=== PATIENT | male | born 1950 | race African-American/Black ===

== ENCOUNTER 2017-03-11 13:05 | Emergency (ER) | payer MEDICARE ==
[2015-02-26 10:57] VITALS: BMI 24.9
[~2017-03-11 13:05] MED LIST: ACETAMINOPHEN325 MG PO; BAYER CHEWABLE81 MG PEG; DEPAKENE 2250 MG/5 M PEG; DEPAKOTE SPRIN125 MG PO; DEPO-PROVER150 MG/ML IM; HYDROCHLOROTH12.5 M1 PEG; HYDROCODON-ACE1 EAC7 PO; LASIX20 MG PO; LIPITOR20 MG PEG; MOBIC7.5 MG PO; PRINIVIL20 MG PEG; TOPROL XL25 MG PO; VIC-FORTE CAPSUL1 MG PEG; VITAMIN D31000 UNI2 PEG; VOLTAREN100 GM TOPICAL
[2017-03-14 10:51] VITALS: BMI 28.3
== END 2017-03-11 15:38 | disposition home or self-care (01) ==
LOC: D.ER 13:05
DX: Z43.1 Encounter for attention to gastrostomy (principal)

== ENCOUNTER 2017-03-12 14:21 | Emergency (ER) | payer MEDICARE, MEDICAID ==
[2015-02-26 10:57] VITALS: BMI 24.9
[2017-03-14 10:51] VITALS: BMI 28.3
== END 2017-03-12 19:50 | disposition home or self-care (01) ==
LOC: D.ER 14:21
DX: Z43.1 Encounter for attention to gastrostomy (principal)

== ENCOUNTER 2017-03-13 12:17 | Inpatient (IN) | payer MEDICARE ==
[~2017-03-13] VITALS: Ht 162.6 cm; Wt 74.8 kg
[2017-03-13 12:03] VITALS: BP 148/71
--- NOTE | 2017-03-13 13:03 | NUR ---
NEW ADMIT FROM PA. CALL LIGHT IN REACH. WILL CONT. PLAN OF CARE.
[2017-03-13 13:26] VITALS: BP 148/71; BMI 28.4
[2017-03-13 14:18] LABS: BASOPHILS 0.9 % (0-2); EOSINOPHILS 2.6 % (0-7); HEMATOCRIT 35.4 % (42.0-54.0); HEMOGLOBIN 10.6 g/dL (13.5-17.5); IMMATURE GRANULOCYTES 0.2 % (0-5); MCHC 29.9 g/dL (31.0-37.0); MCV 93.4 fL (80.0-100.0); MEAN PLATELET VOLUME 11.7 fL (7.4-10.4); MONOCYTES 7.4 % (2-11); NEUTROPHILS 70.9 % (40-80); RBC 3.79 10x6/uL (4.20-6.10); RDW 15.8 % (11.5-14.5); WBC 10.6 10x3/uL (4.8-10.8)
--- NOTE | 2017-03-13 14:19 | NUR ---
WOUND CARE CONSULT: PATIENT ADMITTED FROM DETENTION. CALMOSEPTINE SEEN IN GROIN AREA, CLEANED OFF, NO SKIN ISSURES SEEN. COCCYX AND SACRUM ARE FREE FROM SKIN ISSURES. BOTTOM OF FEET ARE DRY AND SCALY. UNSURE IS PATIENT IS ABLE TO WALK HE CAN NOT BEND HIS ANKLES WHEN ASKED TO. RECOMMEND TO TURN EVERY TWO HOURS, BRIDGE HEELS TO HELP PREVENT SKIN ISSUES. SKIN CARE WILL MONITOR NEEDED.
[2017-03-13 14:21] LABS: PLATELET COUNT 528 10x3/uL (130-400)
[2017-03-13 14:33] LABS: ALBUMIN 2.9 g/dL (3.4-5.0); ANION GAP 16.9 mmol/L (8-16); BILIRUBIN - TOTAL 0.18 mg/dL (0.2-1.3); CALCIUM 9.8 mg/dL (8.5-10.1); CARBON DIOXIDE 24.8 mmol/L (21.0-32.0); CREATININE - SERUM 1.8 mg/dL (0.6-1.3); POTASSIUM - SERUM 4.7 mmol/L (3.5-5.1); PROTEIN - SERUM 7.4 g/dL (6.4-8.2)
[2017-03-13 15:58] VITALS: BP 157/52
--- NOTE | 2017-03-13 19:32 | NUR ---
PT RESTING IN BED. DENIES ANY NEEDS. RESPIRATIONS EVEN AND UNLABORED. NO S/S OF DISTRESS. WILL CONTINUE TO MONITOR
--- NOTE | 2017-03-13 20:30 | NUR ---
PT IN BED. C/O BEING WET PADS CHANGED AND PT CLEANED UP. PT ALSO C/O WANTING WATER. NO DIET IS IN AT THIS TIME. SWABS ARE PROVIEDED UNTIL FURTHER NOITCE. PT DENIES ANY OTHER NEEDS, NO S/S OF DISTRESS. WILL CONTINUE TO MONITOR
[2017-03-13 21:50] VITALS: BP 142/67
[2017-03-14 01:18] VITALS: BP 134/67
[2017-03-14 05:35] VITALS: BP 168/63
[2017-03-14 06:04] LABS: HEMATOCRIT 31.8 % (42.0-54.0); HEMOGLOBIN 9.5 g/dL (13.5-17.5)
--- NOTE | 2017-03-14 06:53 | NUR ---
PT IN BED IRRITABLE. ASKS FOR WATER. NO DIET IS PUT IN AND BECAUSE OF THE ADM. DX OF EMESIS LOOKS LIKE COFFEE GROUNDS. SWABS GIVEN SERVAL TIMES. PT DENIES ANY THIS TIME. PT STARTING TO GET RESTLESS. CAN HEAR A GARGLE WHEN BREATHING AT TIMES. NOT CLEARED WITH A COUGH. NO S/S OF DISTRESS. RESPIRATIONS ARE EVEN AND UNLABORED. WILL CONTINUE TO MONITOR PT
[2017-03-14 08:00] VITALS: BP 143/65
--- NOTE | 2017-03-14 08:15 | NUR ---
INTRODUCED MYSELF TO PT. PT VERY EAGER TO DRINK WATER, UNSURE IF PT IS CAPABLE OF THIS. SPEECH CONSULT IN PROGRESS, PROVIDED ORAL CARE AND WILL AWAIT SPEECH TO ASSESS. DIETARY CONSULTED FOR G-TUBE ORDERS, GI GAVE OKAY TO USE TOLERATED G-TUBE IS IN PLACE BUT OPENING IS WIDENED. WILL PROVIDE DRSG AND WOUND CARE SHORTLY AND CPOC.
[2017-03-14 10:51] VITALS: Ht 162.6 cm; Wt 74.8 kg
--- NOTE | 2017-03-14 11:00 | NUR ---
CHANGED PTS G-TUBE DRSG. CLEANSED WITH ASEPTIC FOAM CLEANSER, PATTED DRY AND THEN APPLIED KATE DRAIN DRG AND TAPED DOWN. SITE HAD BROWNISH YELLOW DRAINAGE WITH SOME DRIED UP BLOOD. PROVIDED PT WITH ORAL CARE. APPLIED SCDS FOR DVT PROPHYLACTIC AND APPLIED SOCKS PT REQUESTED. NO FURTHER NEEDS NOTED AT THIS TIME. CL IN REACH, BED IN LOWEST, SIDE RAILS X2 AND BUILT IN BED ALARM ON. WILL CPOC.
--- NOTE | 2017-03-14 11:05 | NUR ---
Nutrition Consult: Consult received to start TF. Orders put in to start Osmolite 1.5 @ 10 ml/hr. Advance 10 ml every 6-8 hours as tolerated to goal rate of 50 ml/hr. Water flushes 25 ml/hr. RD will monitor pt progress and tolerance to TF.
--- NOTE | 2017-03-14 11:30 | NUR ---
ORDERS REC'D FOR TUBE FEEDING. NO KANGEROO PUMP AVAILABLE AT THIS TIME. CALLED [facility] AND SPOKE TO OSMANI WHO STATES SHE WILL SEND ONE OVER. WILL CPOC.
[2017-03-14 12:00] VITALS: BP 171/71
[2017-03-14] MEDS ORDERED: HEMOCYTE PLUS C1 CAP PO (14:36)
--- NOTE | 2017-03-14 14:37 | NUR ---
PT NOW BEING DISCHARGE. TUBE FEEDINGS WILL NOT BE STARTED, BEGINNING DISCHARGE PAPERWORK. SISTER AT BEDSIDE AND VERBALIZED UNDERSTANDING. NO FURTHER NEEDS. WILL CTM.
--- NOTE | 2017-03-14 15:34 | NUR ---
Patient Name: LG JACOBS Admission Status: Urgent Accout number: [id number] Admission Date: 03-13-2017 : 1950 Admission Diagnosis: Attending: CANDY Current LOS: 1 Anticipated DC Date: 03-14-2017 Planned Disposition: Nursing Facility MALIK Cert Primary Insurance: MEDICARE A & B PLANNED EXTERNAL PROVIDER: [facility], [facility] MEDICAID BED Discharge Planning Comments: * Is the patient Alert and Oriented? Yes 0 * How many steps to enter\exit or inside your home? NONE 0 * PCP [facility] 0 * Pharmacy [facility] 0 * Preadmission Environment [facility] 0 * Facility Name [facility] 0 * ADLs Total Dependent 0 * Equipment Enteral Feeding and Supplies Wheelchair 0 * Other Equipment ALL EQUIPMENT AND NEEDS PROVIDED BY NURSING FACILITY 0 * List name and contact numbers for known caregivers / representatives who currently or will assist patient after discharge: ALICE DARNELL, SISTER, 0 * Community resources currently utilized None 0 * Please name any agencies selected above. NONE 0 * Additional services required to return to the preadmission environment? No 0 * Can the patient safely return to the preadmission environment? Yes 0 * Has this patient been hospitalized within the prior 30 days at any hospital? Yes 0 CM RECEIVED DISCHARGE ORDER, MET WITH PT AND HIS SISTER, ALICE IN ROOM. PT CAN SPEAK BUT IS VERY DIFFICULT TO UNDERSTAND. PT REPORTS LIVING AT THE [facility], SISTER REPORTS PT LIVES AT [facility] AND HAS BEEN THERE FOR YEARS. PT'S FAMILY MEMBERS WORK AT THE FACILITY AND SISTER REPORTS PT'S NEEDS ARE MET AND PT IS SAFE THERE. PT WILL RETURN THERE TODAY. [place] CONTACTED [facility], CLINCAL COORDINATOR FOR [facility], , PT CAN RETURN TODAY, HAND SCUDDER ADVISED THAT PT HAS NOT BEEN OUT OF BED IN MONTHS. CM FAXED DISCHARGE INFORMATION TO [facility] VIA [facility] AT [phone]. NURSE REPORT TO BE CALLED TO [facility] AT [phone]. PT TO TRANSPORT VIA AMBULANCE IF HE QUALIFIES. IF PT IS ABLE TO SIT SAFELY FOR DURATION OF TRANSPORT NOTIFY [facility] WHO WILL ARRANGE VAN TRANSPORT. Car Sweeper: Nick Mcgill
[2017-03-14 15:51] VITALS: BP 173/71
--- NOTE | 2017-03-14 18:09 | NUR ---
CALLED [facility] FOR AMBULANCE TRANSFER BACK TO [facility]. [facility] ESTIMATED AROUND A ONE HOUR WAIT. PT UNABLE TO SIGN DISCHARGE PAPERS R/T OLD STROKE LEAVING L.ARM VERY LIMITED AND RIGHT ARM PT JUST STATES "CANT SIGN" REPORT GIVEN TO [facility] NURSE AND NO FURTHER QUESTIONS. WILL AWAIT TRANSPORTATION.
--- NOTE | 2017-03-14 20:24 | NUR ---
EMS TO GYM TEACHER PT. PT CLEANED INCONT BM. PT LEFT MIDLINE REMOVED AND PRESSURE DRESSING APPLIED. SISTER CALLED AT [phone] LIKE REQUESTED. PT LEAVE WITH EMS TO COURT YARD
== END 2017-03-14 20:22 | DRG 395 ==
LOC: D.M2 12:17
PROVIDERS: Family Medicine; ADMIT Family Medicine
PROC: 05HC33Z Insertion of Infusion Device into Left Basilic Vein, Percutaneous Approach (ICD-10-PCS; principal; 2017-03-13)
PROC: B54NZZA Ultrasonography of Left Upper Extremity Veins, Guidance (ICD-10-PCS; 2017-03-13)
DX: K94.23 Gastrostomy malfunction (principal); I69.919 Unspecified symptoms and signs involving cognitive functions following unspecified cerebrovascular disease; F01.50 Vascular dementia, unspecified severity, without behavioral disturbance, psychotic disturbance, mood disturbance, and anxiety; I10 Essential (primary) hypertension; Z72.0 Tobacco use; F32.9 Major depressive disorder, single episode, unspecified; E55.9 Vitamin D deficiency, unspecified; D64.9 Anemia, unspecified

== ENCOUNTER 2017-04-02 10:10 | Emergency (ER) | payer MEDICARE ==
[2017-03-14 10:51] VITALS: BMI 28.3
[~2017-04-02 10:10] MED LIST changes: +HEMOCYTE PLUS C1 CAP PO
== END 2017-04-02 12:45 | disposition home or self-care (01) ==
LOC: D.ER 10:10
DX: K94.20 Gastrostomy complication, unspecified (principal); R13.10 Dysphagia, unspecified; R09.89 Other specified symptoms and signs involving the circulatory and respiratory systems; R53.1 Weakness

== ENCOUNTER → 2017-04-05 08:53 | Outpatient (CLI) | payer MEDICARE ==
[2017-03-14 10:51] VITALS: BMI 28.3
--- NOTE | ~2017-04-05 | HEMODYNAMI ---
PATIENT:LG JACOBS MEDICAL RECORD: [id number] : 46 LOCATION:[facility] ADMISSION DATE: 04/05/17 Generatedon:04/05/201710:03 Patient name: LG JACOBS Patient #: [id number] SSN: : 1950 Date of study: 04/05/2017 Page: Of Hemodynamic Procedure Report Patient Data Patient Demographics Procedure consent was obtained First Name: LG Gender: Male Last Name: ARLENE : 1950 [facility] Initial: J Age: 66 year(s) Patient #: [id number] Race: Black Additional ID: [id number] Contact details Address: [address] [place] [address] DRIVE State: [place] City: [place] Zip code: [address] Admission Admission Data Admission Date: 04/05/2017 Admission Time: 8:53 Procedure Procedure Types Cath Procedure Peripheral Cath Diagnostic Procedure Miscellaneous Procedure Description Procedure Date Procedure Date: 04/05/2017 Procedure Start Time: 9:53 Procedure Staff Name Function Martha Hauser MD Ordering physician Martha Hauser MD Interpreting employee operations examiner Suleiman Williamson MD Performing Physician Srinivasa Ramirez RT Scrub Srinivasa Ramirez RT Monitor Aisha Bruno RN Nurse Procedure Data Cath Procedure Fluoroscopy Diagnostic fluoroscopy Total fluoroscopy Time: 0.5 time: 0.5 min min Diagnostic fluoroscopy Total fluoroscopy dose: 5 dose: 5 mGy mGy Contrast Material Contrast Material Type Amount (ml) Isovue 300 16 Hemodynamics Rest Pre Cath Intra NCS Post Cath Procedure Log Time Note 9:35:28 Srinivasa Ramirez RT (R) (CV) sent for patient. Start room use. 9:35:44 Patient received from Outpatients to IR Alert and oriented. Tansferred to table in Supine position. 9:35:48 Signed procedure consent form obtained from guardian. 9:35:49 Pre-procedure instructions explained to patient. 9:35:52 Use device set IR Diagnostic 9:35:53 Sterile Angiographic Pack opened to sterile field. 9:35:54 Bag Decanter opened to sterile field. 9:36:08 Unable to provide pre-op teaching due to educational barrier. stroke 9:36:14 Left abdomen area was prepped with chlora-prep and draped in sterile fashion 9:52:17 --------ALL STOP TIME OUT------ 9:52:18 Final Timeout: patient, procedure, and site verified with staff and physician. All members of the team are in agreement. 9:52:25 Sedation plan: Local Anesthetic Lidocaine 9:53:12 Procedure started. 9:53:12 Full Disclosure recording started 9:53:22 Local anesthetic to Abdominal area with Lidocaine 1% by Suleiman Williamson MD.INITIAL ACCESS ONLY 9:53:[address] .035 145 glide wire opened to sterile field. 9:53:25 TUBE GASTROSTOMY TRI FUNNEL 18FR opened to sterile field. 10:02:14 Procedure ended.(Physican Out) 10:02:40 Fluoroscopy time 00.50 minutes. 10:02:43 Fluoroscopy dose: 5 mGy 10:02:43 Flurop Dose total: 5 10:02:52 Contrast amount:Isovue 300 16ml. 10:02:54 Sharps counted by scrub and verified by R.N. 10:02:56 Insertion/operative site no bleeding no hematoma. 10:03:03 Post Abdominal area:stable 10:03:10 Patient needs reinforcement of post procedure teaching. 10:03:14 Procedure and supply charges have been captured, reviewed, submitted and are correct. 10:03:17 Report given to Other. 10:03:21 Patient transfered to Other with Wheelchair. Device Usage Item Name Manufacture Quantity Catalog Hospital Part Current Minimal Lot# / Number Charge Number Stock Stock Serial# Code Sterile Cardinal 1 [id number] 5 Angiographic Health Pack Bag Decanter Microtek [id number] [id number] 5 [employer] VidaPak Medical 1 [id number] [id number] .035 145 glide wire TUBE [place] 1 [id number] 109496 5 GASTROSTOMY TRI FUNNEL 18FR Signature Audit [place] Stage Time Signature Unsigned Intra-Procedure 04/05/2017 Srinivasa 10:03:34 AM [place] RT (R) (CV) Signatures Monitor : Srinivasa Signature : James RT Date : Time : [place] [id number] [place] [address]
== END | disposition home or self-care (01) ==
LOC: D.OPS 08:53 → D.RAD 13:00 → D.OPS 13:00
DX: R13.10 Dysphagia, unspecified (principal)

== ENCOUNTER 2017-04-28 14:06 | Emergency (ER) | payer MEDICARE ==
[2017-03-14 10:51] VITALS: BMI 28.3
== END 2017-04-28 16:05 | disposition home or self-care (01) ==
LOC: D.ER 14:06
DX: K94.29 Other complications of gastrostomy (principal)

== ENCOUNTER → 2017-07-13 08:22 | Outpatient (CLI) | payer MEDICARE ==
[2017-03-14 10:51] VITALS: BMI 28.3
--- NOTE | ~2017-07-13 | HEMODYNAMI ---
PATIENT:LG JACOBS MEDICAL RECORD: [id number] : 46 LOCATION:[facility] ADMISSION DATE: 07/13/17 Generatedon:07/13/201710:48 Patient name: LG JACOBS Patient #: [id number] SSN: : 1950 Date of study: 07/13/2017 Page: Of Hemodynamic Procedure Report Patient Data Patient Demographics Procedure consent was obtained First Name: LG Gender: Male Last Name: ARLENE : 1950 [facility] Initial: J Age: 67 year(s) Patient #: [id number] Race: Black Additional ID: [id number] Contact details Address: [address] [place] [address] DRIVE State: [place] City: [place] Zip code: [address] Admission Admission Data Admission Date: 07/13/2017 Admission Time: 8:22 Procedure Procedure Types Cath Procedure Peripheral Cath Diagnostic Procedure Cath Peripheral Gastric G Tube Replacement Procedure Description Procedure Date Procedure Date: 07/13/2017 Procedure Start Time: 10:41 Procedure Staff Name Function Felice Paul MD Performing Physician Arlette Shane RT Monitor Srinivasa Ramirez RT Scrub Cassandra Clark RN Nurse Arlette Shane RT Dye Expert Procedure Data Cath Procedure Fluoroscopy Diagnostic fluoroscopy Total fluoroscopy Time: 0.8 time: 0.8 min min Diagnostic fluoroscopy Total fluoroscopy dose: 22 dose: 22 mGy mGy Contrast Material Contrast Material Type Amount (ml) Isovue 300 15 Procedure Medications Medication Administration Route Dosage Lidocaine 1% added to field 20 Heparin Flush Bag added to field 1 bags (1000units/500ml NS) Hemodynamics Rest Pre Cath Intra NCS Post Cath Medications Time Medication Route Dose Verified Delivered Reason Notes Effe ctiveness by by 10:32:22 Lidocaine 1% added 20ml Cassandra Viveros for local to vial Eduardo Paul anesthetic field ADOLFO PEREZ 10:32:42 Heparin Flush added 1 Cassandra Viveros Bag to bags Eduardo Paul (1000units/500ml field RN NS) Procedure Log Time Note 9:49:38 Time tracking: Regular hours 9:50:06 Plan of Care:Comfort level will be maintained., Procedure tolerated without complication., Recovers from procedure without complications.. 9:50:20 Patient received from Other to IR Alert and oriented. Tansferred to table in Supine position. 9:50:23 Correct patient and procedure confirmed by team. 9:50:26 Signed procedure consent form obtained from guardian. 9:50:29 - 9:51:14 Patient NPO since Midnight. 9:53:27 Is the patient allergic to Iodine/contrast media? No. 9:53:37 - 9:53:46 Use device set IR Diagnostic 9:53:47 Sterile Angiographic Pack opened to sterile field. 9:53:49 Bag Decanter opened to sterile field. 10:24:52 TUBE GASTROSTOMY TRI FUNNEL 18FR opened to sterile field. 10:32:22 Lidocaine 1% 20ml vial added to field was administered by Feliec petersen MD; for local anesthetic; 10:32:42 Heparin Flush Bag (1000units/500ml NS) 1 bags added to field was administered by Felice Paul MD; ; 10:34:31 Left abdomen area was prepped with chlora-prep and draped in sterile fashion 10:40:27 Physician arrived 10:41:00 --------ALL STOP TIME OUT------ 10:41:01 Final Timeout: patient, procedure, and site verified with staff and physician. All members of the team are in agreement. 10:41:38 Sedation plan: Local Anesthetic Medication:Lidocaine 10:41:52 Procedure started. 10::52 Full Disclosure recording started 10:42:20 Cook ELIZABETH .035 15CM guide wire opened to sterile field. 10:44:25 g tube replaced with a 18fr tri funnel g tube 10:46:55 Procedure ended.(Physican Out) 10:47:13 Fluoroscopy time 00.80 minutes. 10:47:19 Fluoroscopy dose: 22 mGy 10:47:19 Flurop Dose total: 22 10:47:23 Contrast amount:Isovue 300 15ml. 10:47:42 Procedure and supply charges have been captured, reviewed, submitted an d are correct. 10:47:49 Report given to Other. 10:47:56 Patient transfered to Other with Stretcher. Device Usage Item Name Manufacture Quantity Catalog Hospital Part Current Minimal Lot# / Number Charge Number Stock Stock Serial# Code Sterile Cardinal 1 [id number] 5 Angiographic Health Pack Bag Decanter Microtek 1 [id number] 57923 [id number] 5 Medical Inc. TUBE Bard 1 [id number] 242951 358054 5 GASTROSTOMY TRI FUNNEL 18FR Cook [facility] 1 [id number] [id number] 5 .035 15CM guide wire Signature Audit [place] Stage Time Signature Unsigned Intra-Procedure 07/13/2017 Arlette Shane 10:48:36 AM RT(R) Signatures Monitor : Arlette Shane RT Signature : Date : Time : [address] [address]
== END | disposition home or self-care (01) ==
LOC: D.RAD 08:22
DX: R41.82 Altered mental status, unspecified (principal); R13.10 Dysphagia, unspecified

== ENCOUNTER 2018-04-15 09:24 | Emergency (ER) | payer MEDICARE ==
[~2018-04-15] VITALS: Ht 162.6 cm; Wt 74.5 kg
[2018-04-15 09:27] VITALS: Ht 162.6 cm; Wt 74.5 kg
[2018-04-15 14:47] VITALS: BP 132/62
== END 2018-04-15 14:49 | disposition home or self-care (01) ==
LOC: D.ER 09:24
DX: K94.23 Gastrostomy malfunction (principal); F03.90 Unspecified dementia, unspecified severity, without behavioral disturbance, psychotic disturbance, mood disturbance, and anxiety; I10 Essential (primary) hypertension; K21.9 Gastro-esophageal reflux disease without esophagitis

== ENCOUNTER 2018-04-18 07:19 | Emergency (ER) | payer MEDICARE ==
[~2018-04-18] VITALS: Ht 162.6 cm; Wt 79.5 kg
--- NOTE | ~2018-04-18 | HEMODYNAMI ---
PATIENT:LG JACOBS MEDICAL RECORD: [id number] : 46 LOCATION:[facility] ADMISSION DATE: 04/18/18 Generatedon:04/18/20189:20 Patient name: LG JACOBS Patient #: [id number] SSN: : 1950 Date of study: 04/18/2018 Page: Of Hemodynamic Procedure Report Patient Data Patient Demographics Procedure consent was obtained First Name: LG Gender: Male Last Name: ARLENE : 1950 [facility] Initial: J Age: 68 year(s) Patient #: [id number] Race: Black Additional ID: [id number] Contact details Address: [address] [place] [address] DRIVE State: [place] City: [place] Zip code: [address] Past Medical History Allergies: No known allergies Admission Admission Data Admission Date: 04/18/2018 Admission Time: 7:19 Height (in.): 64 BSA: 1.85 (m2) Height (cm.): 162.56 BMI: 30.04 (kg/m2) Weight (lbs.): 175 Weight (kg.): 79.38 Procedure Procedure Types Cath Procedure Peripheral Cath Diagnostic Procedure Cath Peripheral Gastric G Tube Replacement Procedure Description Procedure Date Procedure Date: 04/18/2018 Procedure Start Time: 9:07 Procedure Staff Name Function Suleiman Williamson MD Performing Physician Arlette Shane RT Roll Former Cassandra Clark RN Nurse Srinivasa Ramirez RT Scrub Procedure Data Cath Procedure Fluoroscopy Diagnostic fluoroscopy Total fluoroscopy Time: 0.5 time: 0.5 min min Diagnostic fluoroscopy Total fluoroscopy dose: 12 dose: 12 mGy mGy Contrast Material Contrast Material Type Amount (ml) Isovue 300 25 Hemodynamics Rest BSA: 1.85 (m2) O2 Consumption: Estimated: 251.6 (ml/min) O2 Consumption indexed: Estimated:136 (ml/min/m) Pre Cath Intra NCS Post Cath Procedure Log Time Note 8:49:00 Patient Height : 64 inches 8:49:05 Patient Weight : 175 lbs 8:50:00 Use device set IR Diagnostic 8:55:02 Time tracking: Regular hours (M-F 7:00 - 5:00) 8:55:12 Patient received from ED to IR Alert and oriented. Tansferred to table in Supine position. 8:55:19 Signed procedure consent form obtained from verbally. 8:55:34 H&P Date Dictated: 04/18/2018 ER History on chart.. 8:55:36 Pre-procedure instructions explained to patient. 8:55:37 Pre-op teaching completed and patient verbalized understanding. 8:55:41 Family unavailable. 8:55:51 Patient allergic to No known allergies 8:55:58 Is the patient allergic to Iodine/contrast media? No. 8:56:04 8:56:11 Sterile Angiographic Pack opened to sterile field. 8:56:13 Bag Decanter () opened to sterile field. 9:06:55 Physician arrived 9:07:07 --------ALL STOP TIME OUT------ 9:07:08 Final Timeout: patient, procedure, and site verified with staff and physician. All members of the team are in agreement. 9:07:14 Procedure started. 9:07:14 Full Disclosure recording started 9:07:20 Local anesthetic to Abdominal area with Lidocaine 1% by Suleiman Williamson MD.INITIAL ACCESS ONLY 9:16:39 Procedure ended.(Physican Out) 9:16:45 Fluoroscopy time 00.50 minutes. 9:16:49 Fluoroscopy dose: 12 mGy 9:16:49 Flurop Dose total: 12 9:16:54 Contrast amount:Isovue 300 25ml. 9:16:57 Procedure and supply charges have been captured, reviewed, submitted and are correct. Device Usage Item Name Manufacture Quantity Catalog Hospital Part Current Minimal Lot# / Number Charge Number Stock Stock Serial# Code Sterile Cardinal 1 [id number] 5 Angiographic Health Pack Bag Decanter Microtek 1 [id number] 19999 [id number] 5 () [employer] Signature Audit [place] Stage Time Signature Unsigned Intra-Procedure 04/18/2018 Arlette Shane 9:20:22 AM RT(R) [place] [id number] [place] [address]
[2018-04-18 07:25] VITALS: Ht 162.6 cm; Wt 79.5 kg
[2018-04-18] MEDS ORDERED: PROVENTIL/2.5 MG/3 M INH (07:30)
[2018-04-18] MEDS ORDERED: NORVASC5 MG PO (07:30)
[2018-04-18 10:06] VITALS: BP 139/62
== END 2018-04-18 10:43 | disposition home or self-care (01) ==
LOC: D.ER 07:19
DX: K94.23 Gastrostomy malfunction (principal); Z86.73 Personal history of transient ischemic attack (TIA), and cerebral infarction without residual deficits; K21.9 Gastro-esophageal reflux disease without esophagitis

== ENCOUNTER 2018-06-15 18:06 | Emergency (ER) | payer MEDICARE ==
[~2018-06-15] VITALS: Ht 162.6 cm; Wt 75.0 kg
[~2018-06-15 18:06] MED LIST changes: +NORVASC5 MG PO; +PROVENTIL/2.5 MG/3 M INH
[2018-06-15 18:21] VITALS: Ht 162.6 cm; Wt 75.0 kg
[2018-06-15 21:35] VITALS: BP 160/64
== END 2018-06-15 21:37 | disposition home or self-care (01) ==
LOC: D.ER 18:06
DX: K94.23 Gastrostomy malfunction (principal); Z86.73 Personal history of transient ischemic attack (TIA), and cerebral infarction without residual deficits; G71.00 Muscular dystrophy, unspecified; K21.9 Gastro-esophageal reflux disease without esophagitis

== ENCOUNTER → 2018-08-23 12:34 | Outpatient (CLI) | payer MEDICARE ==
[2018-06-15 18:21] VITALS: BMI 28.4
--- NOTE | ~2018-08-23 | HEMODYNAMI ---
PATIENT:LG JACOBS MEDICAL RECORD: [id number] : 46 LOCATION:[facility] ADMISSION DATE: 08/23/18 Generatedon:08/23/201814:29 Patient name: LG JACOBS Patient #: [id number] SSN: : 1950 Date of study: 08/23/2018 Page: Of Hemodynamic Procedure Report Patient Data Patient Demographics First Name: LG Gender: Male Last Name: ARLENE : 1950 [facility] Initial: J Age: 68 year(s) Patient #: [id number] Race: Black Additional ID: [id number] Contact details Address: [address] [place] [address] DRIVE State: [place] City: [place] Zip code: [address] Past Medical History Allergies: No known allergies Admission Admission Data Admission Date: 08/23/2018 Admission Time: 12:34 Procedure Procedure Types Cath Procedure Peripheral Cath Diagnostic Procedure Diesel Engine Operator Peripheral Procedures Gastric G Tube Replacement Procedure Description Procedure Date Procedure Date: 08/23/2018 Procedure Start Time: 14:22 Procedure Staff Name Function Bhupinder Lemos MD Performing Physician Arlette Shane RT Brand Mgr Gunjan Cobos RN Nurse Srinivasa Ramirez RT Scrub Procedure Data Cath Procedure Fluoroscopy Diagnostic fluoroscopy Total fluoroscopy Time: 0.4 time: 0.4 min min Diagnostic fluoroscopy Total fluoroscopy dose: 4 dose: 4 mGy mGy Contrast Material Contrast Material Type Amount (ml) Isovue 300 12 Hemodynamics Rest Pre Cath Intra NCS Post Cath Procedure Log Time Note 14:01:50 Time tracking: Regular hours (M-F 7:00 - 5:00) 14:14:42 Use device set IR Diagnostic 14:14:44 Sterile Angiographic Pack opened to sterile field. 14:14:45 Bag Decanter () opened to sterile field. 14:15:03 GASTROSTOMY 24Fr Tri-Funnel Tube ([id number]) opened to sterile field. 14:19:08 Physician arrived 14:19:17 --------ALL STOP TIME OUT------ 14:19:17 Final Timeout: patient, procedure, and site verified with staff and physician. All members of the team are in agreement. 14:22:17 GLIDE WIRE ANGLE 180cm ([id number]) opened to sterile field. 14:22:41 Procedure started. 14:22:42 Full Disclosure recording started 14:27:03 g tube replaced with a 24fr tri funnel bard g tube 14:27:09 Procedure ended.(Physican Out) 14:27:23 Fluoroscopy time 00.40 minutes. 14:27:29 Fluoroscopy dose: 4 mGy 14:27:29 Flurop Dose total: 4 14:27:34 Contrast amount:Isovue 300 12ml. 14:27:45 Procedure and supply charges have been captured, reviewed, submitted and are correct. Device Usage Item Name Manufacture Quantity Catalog Hospital Part Current Minimal Lot# / Number Charge Number Stock Stock Serial# Code Sterile Cardinal 1 [id number] 5 Angiographic Health Pack Bag Decanter Microtek [id number] 89455 183797 5 () [employer] GASTROSTOMY Bard 1 [id number] [id number] [id number] 5 20Fr Tri-Funnel Tube ([id number]) GLIDE WIRE Terumo 1 [id number] [id number] [id number] 5 ANGLE 180cm ([id number]) Signature Audit [place] Stage Time Signature Unsigned Intra-Procedure 08/23/2018 Arlette Shane 2:29:27 PM RT(R) [facility] [address] [place] [address]
== END | disposition home or self-care (01) ==
LOC: D.SP 12:34 → D.RAD 14:00 → D.SP 14:00
DX: R13.10 Dysphagia, unspecified (principal); Z01.812 Encounter for preprocedural laboratory examination

== ENCOUNTER → 2018-11-13 13:15 | Outpatient (CLI) | payer MEDICARE ==
[2018-06-15 18:21] VITALS: BMI 28.4
--- NOTE | ~2018-11-13 | HEMODYNAMI ---
PATIENT:LG JACOBS MEDICAL RECORD: [id number] : 46 LOCATION:[facility] ADMISSION DATE: 11/13/18 Generatedon:11/13/201814:34 Patient name: LG JACOBS Patient #: [id number] SSN: : 1950 Date of study: 11/13/2018 Page: Of Hemodynamic Procedure Report Patient Data Patient Demographics Procedure consent was obtained First Name: LG Gender: Male Last Name: ARLENE : 1950 [facility] Initial: J Age: 68 year(s) Patient #: [id number] Race: Black Additional ID: [id number] Contact details [address]: [address] [place] [address] [address]IVE State: [place] City: [place] Zip code: [address] Past Medical History Allergies: No known allergies Admission Admission Data Admission Date: 11/13/2018 Admission Time: 13:15 Procedure Procedure Types Cath Procedure Peripheral Cath Diagnostic Procedure Gastric G Tube Replacement Procedure Description Procedure Date Procedure Date: 11/13/2018 Procedure Start Time: 14:19 Procedure Staff Name Function Felice Paul MD Performing Physician Srinivasa Ramirez RT Monitor Arlette Shane RT Scrub Cassandra Clark RN Nurse Procedure Data Cath Procedure Fluoroscopy Diagnostic fluoroscopy Total fluoroscopy Time: 1.5 time: 1.5 min min Diagnostic fluoroscopy Total fluoroscopy dose: 18 dose: 18 mGy mGy Contrast Material Contrast Material Type Amount (ml) Isovue 300 15 Diagnostic catheters Device Type Used For End Catheter Placement Merit Impress KA 2 5Fr 40CM catheter ([id number]) Hemodynamics Rest Pre Cath Intra NCS Post Cath Procedure Log Time Note 14:01:32 Srinivaas Ramirez RT (R) (CV) sent for patient. Start room use. 14:01:38 Time tracking: Regular hours (M-F 7:00 - 5:00) 14:01:44 Patient received from Outpatients to IR Alert and oriented. Tansferred to table in Supine position. 14:01:46 Correct patient and procedure confirmed by team. 14:01:48 Signed procedure consent form obtained from verbally. 14:01:50 Full Disclosure recording started 14:01:50 - 14:01:52 Pre-procedure instructions explained to patient. 14:01:52 Pre-op teaching completed and patient verbalized understanding. 14:01:56 Family unavailable. 14:07:17 Patient allergic to No known allergies 14:07:29 Is the patient allergic to Iodine/contrast media? No. 14:07:32 Is patient on blood thinner?No 14:07:35 - 14:10:03 Use device set IR Diagnostic 14:10:07 Sterile Angiographic Pack opened to sterile field. 14:10:09 Bag Decanter () opened to sterile field. 14:10:28 A Terressentia KA 2 5Fr 40CM catheter ([id number]) was advanced over the wire and used for . 14:16:27 - 14:18:57 Physician arrived 14:18:59 --------ALL STOP TIME OUT------ 14:19:00 Final Timeout: patient, procedure, and site verified with staff and physician. All members of the team are in agreement. 14:19:24 Procedure started. 14:19:30 Local anesthetic to Abdominal area with Lidocaine 1% by Felice Paul MD.INITIAL ACCESS ONLY 14:24:40 Timer 1 started at 2:24 PM, stopped at 2:24 PM, duration 00:00:00 sec. 14:25:01 AMPLATZ Super Stiff 75cm wire ([id number]) opened to sterile field. 14:25:02 PEEL-A-WAY INTRODUCER 24 FR opened to sterile field. 14:29:29 GASTROSTOMY 24Fr Tri-Funnel Tube ([id number]) opened to sterile field. 14:30:28 24fr tri funnel gastrostomy tube placed 14:32:14 Procedure ended.(Physican Out) 14:32:47 Fluoroscopy time 01.50 minutes. 14:32:51 Fluoroscopy dose: 18 mGy 14:32:51 Flurop Dose total: 18 14:33:03 Contrast amount:Isovue 300 15ml. 14:33:06 Procedure and supply charges have been captured, reviewed, submitted an d are correct. Device Usage Item Name Manufacture Quantity Catalog Hospital Part Current Minimal Lot# / Number Charge Number Stock Stock Serial# Code Sterile Cardinal 1 [id number] 5 Angiographic Health Pack Bag Decanter Microtek 1 [id number] 5 () Medical Inc. Merit Merit 1 [id number] [id number] 5 Impress KA 2 Medical 5Fr 40CM catheter ([id number]) AMPLATZ [place] 1 [id number] 295719 [id number] [id number] 5 Super Stiff Scientific 75cm wire ([id number]) PEEL-A-WAY Cook [facility] 1 [id number] [id number] [id number] 1 INTRODUCER 20 FR GASTROSTOMY Bard 1 [id number] [id number] [id number] 5 20Fr Tri-Funnel Tube ([id number]) Signature Audit [place] Stage Time Signature Unsigned Intra-Procedure 11/13/2018 Arlette Shane 2:34:28 PM RT(R) Signatures Monitor : Srinivasa Signature : James RT Date : Time : [facility] [address] [place] [address]
== END | disposition home or self-care (01) ==
LOC: D.SP 13:15 → D.RAD 13:30 → D.SP 13:30 → D.RAD 15:00
PROVIDERS: ATTEND Family Medicine
DX: Z43.1 Encounter for attention to gastrostomy (principal); R13.10 Dysphagia, unspecified; I67.9 Cerebrovascular disease, unspecified; Z01.812 Encounter for preprocedural laboratory examination

== ENCOUNTER → 2019-07-08 13:23 | Outpatient (CLI) | payer MEDICARE, MEDICAID ==
[2018-06-15 18:21] VITALS: BMI 28.4
--- NOTE | ~2019-07-08 | HEMODYNAMI ---
PATIENT:LG JACOBS MEDICAL RECORD: [id number] : 46 [id number] ADMISSION DATE: 07/08/19 Generatedon:07/08/201914:30 Patient name: LG JACOBS Patient #: [id number] SSN: : 1950 Date of study: 07/08/2019 Page: Of Hemodynamic Procedure Report Patient Data Patient Demographics Procedure consent was obtained First Name: LG Gender: Male Last Name: ARLENE : 1950 [facility] Initial: J Age: 69 year(s) Patient #: [id number] Race: Black Additional ID: [id number] Contact details [address]: [address] [place] [address] [address]IVE State: [place] City: [place] Zip code: [address] Past Medical History Allergies: No known allergies Admission Admission Data Admission Date: 07/08/2019 Admission Time: 13:23 Procedure Procedure Types Cath Procedure Peripheral Cath Diagnostic Procedure Cosmetic Sales Assistant Peripheral Procedures Gastric G Tube Replacement Procedure Description Procedure Date Procedure Date: 07/08/2019 Procedure Start Time: 14:22 Procedure Staff Name Function Felice Paul MD Performing Physician Arlette Shane RT Electronics Technician XAVI QUEEN RT Scrub Procedure Data Cath Procedure Fluoroscopy Diagnostic fluoroscopy Total fluoroscopy Time: 0.4 time: 0.4 min min Diagnostic fluoroscopy Total fluoroscopy dose: 13 dose: 13 mGy mGy Contrast Material Contrast Material Type Amount (ml) Isovue 300 11 Hemodynamics Rest Pre Cath Intra NCS Post Cath Procedure Log Time Note 14:11:43 Time tracking: Regular hours (M-F 7:00 - 5:00) 14:11:54 Patient received from Other to IR Alert and oriented. Tansferred to table in Supine position. 14:11:58 Signed procedure consent form obtained from verbally. 14:12:03 Pre-procedure instructions explained to patient. 14:12:03 Pre-op teaching completed and patient verbalized understanding. 14:12:06 Family unavailable. 14:12:13 Patient allergic to No known allergies 14:12:17 Is the patient allergic to Iodine/contrast media? No. 14:12:41 Left abdomen area was prepped with chlora-prep and draped in sterile fashion 14:12:45 - 14:12:56 Use device set IR Diagnostic 14:12:58 Sterile Angiographic Pack opened to sterile field. 14:12:59 Bag Decanter () opened to sterile field. 14:13:08 GASTROSTOMY 20Fr Tri-Funnel Tube ([id number]) opened to sterile field. 14:16:36 ELIZABETH .035 15cm wire ([id number]) opened to sterile field. 14:22:05 - 14:22:10 Physician arrived 14:22:10 --------ALL STOP TIME OUT------ 14:22:11 Final Timeout: patient, procedure, and site verified with staff and physician. All members of the team are in agreement. 14:22:35 Procedure started. 14:22:36 Full Disclosure recording started 14:28:47 20fr g tube replaced 14:28:48 Procedure ended.(Physican Out) 14:29:45 Fluoroscopy time 00.40 minutes. 14:29:50 Fluoroscopy dose: 13 mGy 14:29:50 Flurop Dose total: 13 14:29:55 Contrast amount:Isovue 300 11ml. 14:30:24 Procedure and supply charges have been captured, reviewed, submitted an d are correct. Device Usage Item Name Manufacture Quantity Catalog Hospital Part Current Minimal Lot# / Number Charge Number Stock Stock Serial# Code Sterile Cardinal 1 [id number] 5 Angiographic Health Pack Bag Decanter Microtek 1 [id number] [id number] [id number] 5 (2002S) Medical Inc. GASTROSTOMY Bard 1 [id number] 721785 493660 5 20Fr Tri-Funnel Tube ([id number]) ELIZABETH .035 [facility] 1 [id number] 271756 [id number] 5 [id number] 15cm wire ([id number]) Signature Audit [place] Stage Time Signature Unsigned Intra-Procedure 07/08/2019 Arlette Shane 2:30:46 PM RT(R) [place] [address] [place] [address]
== END | disposition home or self-care (01) ==
LOC: D.RAD 13:00
PROVIDERS: ATTEND Family Medicine
DX: Z43.1 Encounter for attention to gastrostomy (principal)